=== PATIENT | female | born 1990 | race African-American/Black ===

== ENCOUNTER 2020-12-18 07:27 | Day surgery (SDC) | payer MEDICAID ==
[~2020-12-18] VITALS: Ht 172.7 cm; Wt 88.0 kg
[~2020-12-18 07:27] MED LIST: ACET-2029 PO; LACTATED RINGERS 1,000 ML IV SCH; MULT-1116 PO
[2020-12-18 08:26] LABS: BASOPHILS % 0.6 % (0.0-2.0); EOSINOPHILS % 1.7 % (0.0-5.0); HEMATOCRIT. 32.2 % (36.0-48.0); HEMOGLOBIN. 10.2 g/dL (12.0-16.0); LYMPHOCYTES % 29.9 % (20.0-50.0); MEAN CORPUSCULAR HEMOGLOBIN 18.7 pg (28.0-32.0); MEAN PLATELET VOLUME 8.3 fl (7.4-10.4); MONOCYTES % 7.1 % (2.0-8.0); NEUTROPHILS % 60.7 % (40.0-76.0); PLATELET 340 x1000/uL (130-400); RED BLOOD CELL COUNT 5.47 mill/uL (4.2-5.4); RED CELL DISTRIBUTION WIDTH 19.4 % (11.6-14.6)
[2020-12-18 08:30] LABS: CHLORIDE 106 mEq/L (98-107)
[2020-12-18 08:34] LABS: PARTIAL THROMBOPLASTIN TIME 28.2 sec (23.4-31.0); PROTHROMBIN TIME 10.7 sec (9.6-11.0)
[2020-12-18] MEDS ORDERED: VASOPRESSIN 20 UNIT/ML 1ML ONE (08:39)
[2020-12-18] MEDS ORDERED: BUPIVACAINE HCL 0.5% (5MG/ML) 50ML ONE (08:39)
[2020-12-18 08:49] LABS: CLARITY URINE CLEAR (CLEAR); COLOR URINE YELLOW (YELLOW); KETONES URINE NEGATIVE (NEGATIVE); LEUKOCYTE ESTERASE URINE NEGATIVE (NEGATIVE); NITRITE URINE NEGATIVE (NEGATIVE); OCCULT BLOOD URINE 2+ (NEGATIVE); PROTEIN URINE NEGATIVE (NEGATIVE); SPECIFIC GRAVITY URINE 1.023 (1.005-1.030); UROBILINOGEN URINE 0.2 E.U./dL (0.2-1.0)
[2020-12-18 09:06] LABS: UCG SCREEN NEGATIVE
[2020-12-18] MEDS ORDERED: SKIN ADHESIVE 0.7 GM EA TOP ONE (09:18)
[2020-12-18] MEDS ORDERED: ROPIVACAINE HCL 10MG/ML 20 ML VIAL EPI ONE (09:18)
[2020-12-18] MEDS ORDERED: FENTANYL CITRATE/PF 50MCG/ML 2ML VIAL ONE ×2 (09:34→13:18)
[2020-12-18] MEDS ORDERED: MIDAZOLAM HCL 2 MG/2 ML VIAL ONE ×2 (09:34→12:03)
[2020-12-18] MEDS ORDERED: PROPOFOL 200MG/20ML VIAL IV ONE (09:38)
[2020-12-18] MEDS ORDERED: SUCCINYLCHOLINE CHLORIDE 200MG/10ML IV ONE (09:41)
[2020-12-18] MEDS ORDERED: ROCURONIUM BROMIDE 10MG/ML VIAL 5ML IV ONE ×2 (09:44→12:10)
[2020-12-18 09:51] LABS: PLATELET ESTIMATE NORMAL
[2020-12-18] MEDS ORDERED: LEVOFLOXACIN 500MG PREMIX 0 ML IV ONE (11:40)
[2020-12-18] MEDS ORDERED: CLINDAMYCIN 900 MG PREMIX 50 ML IV ONE (11:45)
[2020-12-18] MEDS ORDERED: ONDANSETRON HCL 4MG/2ML INJ ONE ×2 (11:56→14:27)
[2020-12-18] MEDS ORDERED: DEXAMETHASONE 4MG/ML 1ML VIAL ONE (11:56)
[2020-12-18] MEDS ORDERED: METOCLOPRAMIDE HCL 10MG/2ML VIAL ONE (11:57)
[2020-12-18] MEDS ORDERED: SCOPOLAMINE HYDROBROMIDE PATCH 72HR TD NR (12:15)
[2020-12-18] MEDS ORDERED: KETOROLAC 30MG/ML VIAL ONE (14:02)
[2020-12-18] MEDS ORDERED: NEOSTIGMINE METHYLSULFATE 1MG/ML 10 ML VIAL ONE (14:28)
[2020-12-18] MEDS ORDERED: GLYCOPYRROLATE 0.2 MG/ML 2ML VIAL ONE (14:29)
[2020-12-18] MEDS ORDERED: HYDRALAZINE 20MG/ML VIAL ONE (14:35)
[2020-12-18] MEDS: HYDROMORPHONE HCL/PF 2MG/ML CPJ IV PRN ×2 (15:15→16:57)
[2020-12-18 16:57] VITALS: BP 142/80
== END 2020-12-18 19:25 | disposition home or self-care (01) ==
LOC: OR 07:27
PROVIDERS: ATTEND Obstetrics & Gynecology
DX: D25.9 Leiomyoma of uterus, unspecified (principal); N94.6 Dysmenorrhea, unspecified; N92.0 Excessive and frequent menstruation with regular cycle; Z79.899 Other long term (current) drug therapy; Z98.890 Other specified postprocedural states; Z88.1 Allergy status to other antibiotic agents
CPT/HCPCS: 36415; 58545; 74018; 80048; 81003; 81025; 85025; 85610; 85730; 86850; 86900; 86901; 88305; C1725; J0330; J0360; J1100; J1170; J1885; J2250; J2405; J2704; J2710; J2765; J2795; J3010; J3490; S2900; J1956